=== PATIENT | male | born 1955 | race Caucasian/White ===

== ENCOUNTER 2020-06-08 19:35 | Emergency (ER) | payer SELFPAY ==
[~2020-06-08] VITALS: Ht 172.7 cm; Wt 81.6 kg
[2020-06-08 19:59] VITALS: Ht 172.7 cm; Wt 81.6 kg
[2020-06-09] MEDS ORDERED: ANUSOL-HC30 GM TOP (01:15)
[2020-06-09] MEDS ORDERED: MOT800 PO (01:15)
[2020-06-09] MEDS ORDERED: BACTRIM DS1 TAB PO (01:15)
[2020-06-09 02:20] VITALS: BP 160/82
== END 2020-06-09 02:20 | disposition home or self-care (01) ==
LOC: ED 19:35
DX: N40.0 Benign prostatic hyperplasia without lower urinary tract symptoms (principal); N39.0 Urinary tract infection, site not specified; R33.9 Retention of urine, unspecified; K59.00 Constipation, unspecified; I10 Essential (primary) hypertension; Z88.0 Allergy status to penicillin
CPT/HCPCS: J0696

== ENCOUNTER 2020-06-19 13:58 | Emergency (ER) | payer MEDICAID ==
[~2020-06-19] VITALS: Ht 182.9 cm; Wt 81.6 kg
[~2020-06-19 13:58] MED LIST: ANUSOL-HC30 GM TOP; BACTRIM DS1 TAB PO; MOT800 PO
[2020-06-19 14:11] VITALS: BP 197/94; Ht 182.9 cm; Wt 81.6 kg
[2020-06-19] MEDS ORDERED: MIRALAX17 GM PO (15:21)
[2020-06-19] MEDS ORDERED: MAGL PO (15:21)
[2020-06-19] MEDS ORDERED: ULTRAM50 MG PO (15:21)
== END 2020-06-19 15:42 | disposition home or self-care (01) ==
LOC: ED 13:58
DX: K59.00 Constipation, unspecified (principal); I10 Essential (primary) hypertension; Z88.0 Allergy status to penicillin
CPT/HCPCS: J1885